=== PATIENT | female | born 1985 | race American Indian/Alaskan Native ===

== ENCOUNTER 2018-02-09 08:06 | Outpatient (CLI) | payer MEDICAID ==
[2018-02-09 08:56] VITALS: BP 128/62
== END 2018-02-09 11:25 | disposition home or self-care (01) ==
LOC: TRG 08:06
PROVIDERS: ATTEND Obstetrics & Gynecology
DX: O47.1 False labor at or after 37 completed weeks of gestation (principal); Z3A.40 40 weeks gestation of pregnancy; Z87.891 Personal history of nicotine dependence; Z88.6 Allergy status to analgesic agent; Z88.1 Allergy status to other antibiotic agents
CPT/HCPCS: 59025